=== PATIENT | male | born 1960 | race Caucasian/White ===

== ENCOUNTER 2018-08-07 23:20 | Emergency (ER) | payer OTHER ==
[2018-08-07 23:34] VITALS: BP 119/87; PULSE 74; TEMP 97.3; BMI 25.0
[2018-08-07] MEDS ORDERED: DIPHTH,PERTUSS(ACELL),TET 0.5 ML DISP.SYRIN IM ONE (23:42)
--- NOTE | 2018-08-07 23:42 | PDOC ---
History of Present Illness - General Chief Complaint: Laceration Stated Complaint: BLEEDING Time Seen by Provider: 08/07/18 23:35 History Source: Patient - History of Present Illness Initial Comments: 08/08/18 01:03 57 year old male reports that he stepped on a broken light bulb accidentally sustained a small abrasion . unsure if foreign body in foot. last tetanus unknown pmhx: BPH Past History - Past Medical History Allergies/Adverse Reactions: Allergies Allergy/AdvReac Type Severity Reaction Status Date / Time No Known Allergies Allergy Verified 08/07/18 23:33 Home Medications: Ambulatory Orders Cephalexin Monohydrate [Keflex -] 500 mg PO Q8H #15 capsule 08/08/18 CVA: No COPD: No - Suicide/Smoking/Psychosocial Hx Smoking History: Never smoked Have you smoked in the past 12 months: No Information on smoking cessation initiated: No Hx Alcohol Use: No Drug/Substance Use Hx: No Review of Systems - Review of Systems Able to Perform ROS?: Yes Is the patient limited Jamaican proficient: No Integumentary: Yes: Other (foreign body in left foot) *Physical Exam - Vital Signs Last Vital Signs Temp Pulse Resp BP Pulse Ox 97.3 F L 74 18 119/87 100 08/07/18 23:31 08/07/18 23:31 08/07/18 23:31 08/07/18 23:31 08/07/18 23:31 - Physical Exam General Appearance: Yes: Appropriately Dressed Respiratory/Chest: positive: Lungs Clear, Normal Breath Sounds Extremity: positive: Other (small laceration to foot with foreignbody (glass)) Integumentary: positive: Dry, Warm Neurologic: positive: Fully Oriented, Alert, Normal Mood/Affect Procedures - Laceration/Wound Repair Left Foot Wound Length: to 2.5 cm (0.2 cm) Wound Explored: foreign body removed (glass removed from foot) Wound's Depth, Shape: superficial Irrigated w/ Saline: Yes Betadine Prep: Yes Anesthesia: 1% Lidocaine Wound Debrided: minimal Wound Repaired With: Steri-strips Layer Closure: No Sterile Dressing Applied: Yes (bacitracin applied. ) Progress Note - Progress Note Progress Note: A: foreign body in foot s/p removal P: see procedure note boostrix cephalexin pcp follow up for a wound check. *DC/Admit/Observation/Transfer Diagnosis at time of Disposition: Foreign body in foot, left Qualifiers: Encounter type: initial encounter Qualified Code(s): S90.852A - Superficial foreign body, left foot, initial encounter - Discharge Dispostion Disposition: HOME - Prescriptions Prescriptions: Cephalexin Monohydrate [Keflex -] 500 mg PO Q8H #15 capsule - Referrals Referrals: Nicole Clarke [Primary Care Provider] - - Patient Instructions Printed Discharge Instructions: DI for Laceration Repair Additional Instructions: take cephalexin every 8 hours as prescribed you may apply bacitracin to the wound. follow up with your doctor in 2 days for a wound check return to the ER for any worsening symptoms - Post Discharge Activity Forms/Work/School Notes: Back to Work
[2018-08-08] MEDS ORDERED: CEPHALEXIN MONOHYDRATE 500 MG CAPSULE (UD) PO ONE (01:02)
[2018-08-08] MEDS ORDERED: DIPHTH,PERTUSS(ACELL),TET 0.5 ML DISP.SYRIN IM ONE (01:09)
[2018-08-08] MEDS ORDERED: CEPHALEXIN MONOHYDRATE 250 MG CAPSULE (FP) ONE (01:30)
== END 2018-08-08 01:30 | disposition home or self-care (01) ==
LOC: JER 23:20
PROC: 3E0234Z Introduction of Serum, Toxoid and Vaccine into Muscle, Percutaneous Approach (ICD-10-PCS; principal; 2018-08-07)
PROC: 0HCNXZZ Extirpation of Matter from Left Foot Skin, External Approach (ICD-10-PCS; 2018-08-07)
DX: S91.322A Laceration with foreign body, left foot, initial encounter (principal); W45.8XXA Other foreign body or object entering through skin, initial encounter; W25.XXXA Contact with sharp glass, initial encounter; Y93.89 Activity, other specified; Y92.89 Other specified places as the place of occurrence of the external cause; Y99.8 Other external cause status
CPT/HCPCS: 73630-TC-LT; 90715; 99282-25